=== PATIENT | male | born 1990 | race Caucasian/White ===

== ENCOUNTER 2020-08-26 10:48 | Day surgery (SDC) | payer MEDICAID ==
[~2020-08-26] VITALS: Ht 182.9 cm; Wt 113.6 kg
[2020-08-26 11:00] VITALS: BP 125/81
[2020-08-26] MEDS ORDERED: fentaNYL/PF 50MCG/1 ML 2ML syringe ONE (11:10)
[2020-08-26] MEDS ORDERED: MIDAZolam 1 MG/ML 5ML VIAL ONE (11:11)
[2020-08-26] MEDS ORDERED: LIDOcaine Viscous 15ml cup ONE (11:13)
[2020-08-26] MEDS ORDERED: NO HOME MEDS (11:41)
[2020-08-26 12:14] VITALS: BP 110/64
[2020-08-26 12:24] VITALS: BP 107/70
[2020-08-26 12:34] VITALS: BP 117/74
== END 2020-08-26 12:48 | disposition home or self-care (01) ==
LOC: GI LAB 10:48
PROVIDERS: ATTEND Internal Medicine Gastroenterology
DX: R11.0 Nausea (principal); R10.10 Upper abdominal pain, unspecified; R12 Heartburn; K29.50 Unspecified chronic gastritis without bleeding; K20.90 Esophagitis, unspecified without bleeding; F17.290 Nicotine dependence, other tobacco product, uncomplicated
CPT/HCPCS: 43239; 99152; J2250; J3010; J7040; A4620